=== PATIENT | male | born 2000 | race Caucasian/White ===

== ENCOUNTER 2023-12-07 18:02 | Emergency (ER) | payer SELFPAY ==
[2023-12-07] MEDS: Diphtheria,Pertussis(Acell),Tetanus Vaccine 0.5 ML Syringe IM ONE (19:02)
[2023-12-07] MEDS: Lidocaine 1% 5 ML VIAL INJECT ONE ×2 (19:03→20:11)
[2023-12-07] MEDS: Lidocaine 1% 5 ML VIAL ONE (20:12)
== END 2023-12-07 20:12 | disposition home or self-care (01) ==
LOC: MW.ED 18:02
DX: S61.210A Laceration without foreign body of right index finger without damage to nail, initial encounter (principal); Z23 Encounter for immunization; Z75.8 Other problems related to medical facilities and other health care; W23.0XXA Caught, crushed, jammed, or pinched between moving objects, initial encounter
CPT/HCPCS: 12001; 73140-26-F6; 73140-F6; 90471; 90715; 99283; 99283-25; J3490